=== PATIENT | female | born 1995 | race Caucasian/White ===

== ENCOUNTER 2016-07-30 12:03 | Emergency (ER) | payer OTHER ==
[~2016-07-30] VITALS: Ht 157.5 cm; Wt 59.1 kg
[~2016-07-30 12:03] MED LIST: BACTRIM DS 8001 TAB PO; FLOMAX 0.40.4 MG/CAP PO; PERCOCET 325 MG1 TA2 PO; TRI-SPRINTEC 281 TAB; ULTRAM 50MG TAB50 MG PO
[2016-07-30 12:05] VITALS: BP 123/67; TEMP 97.8
[2016-07-30 12:33] LABS: BASO % 0.2 % (0.0-2.0); EOS % 0.2 % (0-4.0); GRAN # 10.8 (1.4-6.5); GRAN % 83.2 % (42.2-75.2); HEMATOCRIT 40.9 % (35.0-45.0); HEMOGLOBIN 13.9 g/dl (12.0-15.0); LYMPH # 1.4 (1.2-3.4); LYMPH % 10.7 % (20.0-51.0); MEAN CELL VOLUME 81 fl (80.0-95.0); MEAN CORPUSCULAR HEMOGLOBIN 28 pg (26.0-32.0); MEAN CORPUSCULAR HGB CONC 34 g/dl (33.0-37.0); MEAN PLATELET VOLUME 9.5 fl (7.4-10.4); MONO # 0.7 (0.1-0.6); MONO % 5.2 % (1.7-9.3); PLATELET COUNT 357 K/mm3 (130-400); RED BLOOD COUNT 5.03 M/mm3 (4.10-5.30); REDCELL DISTRIBUTION WIDTH-CV 12.4 % (11.5-14.5)
[2016-07-30 12:41] LABS: ADJUSTED CALCIUM 9.6 mg/dL (8.4-10.2); ALBUMIN 4.6 gm/dL (3.5-5.0); BILIRUBIN,TOTAL 0.8 mg/dL (0.0-1.0); CALCIUM 10.1 mg/dL (8.4-10.2); CREATININE, serum 1.01 mg/dL (0.52-1.25); POTASSIUM 3.5 mmol/L (3.4-5.0); TOTAL PROTEIN 8.3 gm/dL (6.4-8.2)
[2016-07-30 13:28] LABS: PH 6 (5-8); URINE APPEARANCE Cloudy; URINE BACTERIA Rare /hpf; URINE BILIRUBIN Negative (NEGATIVE); URINE BLOOD 3+ (NEGATIVE); URINE COLOR Yellow; URINE GLUCOSE Negative (NEGATIVE); URINE KETONE Trace (NEGATIVE); URINE RBC >50 /hpf; URINE UROBILINOGEN Negative (NEGATIVE)
[2016-07-30] MEDS ORDERED: PERCOCET 325 MG1 TA2 PO (14:54)
[2016-07-30 15:48] VITALS: PULSE 73
== END 2016-07-30 15:49 | disposition home or self-care (01) ==
LOC: COL.ER 12:03
PROVIDERS: Nurse Practitioner
DX: N13.2 Hydronephrosis with renal and ureteral calculous obstruction (principal); Z87.442 Personal history of urinary calculi; R11.2 Nausea with vomiting, unspecified
CPT/HCPCS: J1885; J2405; J3010; J7030; Q9967

== ENCOUNTER 2016-12-21 12:56 | Day surgery (SDC) | payer OTHER ==
[~2016-12-21] VITALS: Ht 157.5 cm; Wt 65.6 kg
[2016-12-21] MEDS ORDERED: RELAFEN 50500 MG/TAB PO (13:42)
[2016-12-21] MEDS ORDERED: ZOFRAN8 MG PO (13:43)
[2016-12-21] MEDS ORDERED: NORCO 325 MG-51 TAB PO (13:43)
[2016-12-21 13:59] VITALS: BP 115/69; PULSE 76; TEMP 97.9
[2016-12-21 14:31] LABS: BASO % 0.3 % (0.0-2.0); EOS % 0.2 % (0-4.0); GRAN # 9.3 (1.4-6.5); GRAN % 75.1 % (42.2-75.2); HEMATOCRIT 37.1 % (35.0-45.0); HEMOGLOBIN 12.6 g/dl (12.0-15.0); LYMPH % 15.9 % (20.0-51.0); MEAN CELL VOLUME 81 fl (80.0-95.0); MEAN CORPUSCULAR HEMOGLOBIN 28 pg (26.0-32.0); MEAN CORPUSCULAR HGB CONC 34 g/dl (33.0-37.0); MEAN PLATELET VOLUME 9.6 fl (7.4-10.4); MONO % 8.1 % (1.7-9.3); PLATELET COUNT 326 K/mm3 (130-400); RED BLOOD COUNT 4.59 M/mm3 (4.10-5.30); REDCELL DISTRIBUTION WIDTH-CV 12.4 % (11.5-14.5); WHITE BLOOD COUNT 12.4 K/mm3 (4.8-10.8)
[2016-12-21 20:10] VITALS: BP 105/62; PULSE 71; TEMP 97.4
[2016-12-21 20:22] VITALS: TEMP 97.4
[2016-12-21 20:25] VITALS: BP 105/61; PULSE 65
[2016-12-21 20:40] VITALS: BP 112/56; PULSE 72
== END 2016-12-21 21:45 | disposition home or self-care (01) ==
LOC: SDCO 12:56
PROVIDERS: Urology
DX: N20.1 Calculus of ureter (principal)
CPT/HCPCS: C1769; J0690; J1100; J1885; J1940; J2405; J2704; J2765; J3010; Q9967

== ENCOUNTER 2017-04-08 07:02 | Emergency (ER) | payer OTHER ==
[~2017-04-08] VITALS: Ht 157.5 cm; Wt 61.4 kg
[~2017-04-08 07:02] MED LIST changes: +NORCO 325 MG-51 TAB PO; +RELAFEN 50500 MG/TAB PO; +ZOFRAN8 MG PO
[2017-04-08 07:06] VITALS: TEMP 98.2
[2017-04-08] MEDS ORDERED: UROCIT-K 5540 MG/TAB PO (07:11)
[2017-04-08 07:45] LABS: BASO % 0.4 % (0.0-2.0); EOS # 0.1 (0.0-0.7); EOS % 1.7 % (0-4.0); GRAN # 3.7 (1.4-6.5); GRAN % 51.4 % (42.2-75.2); HEMATOCRIT 41.3 % (37.0-47.0); HEMOGLOBIN 13.8 g/dl (12.5-16.0); LYMPH # 2.7 (1.2-3.4); LYMPH % 37.3 % (20.0-51.0); MEAN CELL VOLUME 82 fl (80.0-100.0); MEAN CORPUSCULAR HEMOGLOBIN 27 pg (27.0-31.0); MEAN CORPUSCULAR HGB CONC 33 g/dl (33.0-37.0); MEAN PLATELET VOLUME 9.5 fl (7.4-10.4); MONO # 0.6 (0.1-0.6); MONO % 8.9 % (1.7-9.3); PLATELET COUNT 383 K/mm3 (130-400); RED BLOOD COUNT 5.05 M/mm3 (4.10-5.30); REDCELL DISTRIBUTION WIDTH-CV 12.7 % (11.5-14.5)
[2017-04-08 07:57] LABS: ALBUMIN 4.9 gm/dL (3.5-5.0); BILIRUBIN,TOTAL 0.5 mg/dL (0.0-1.0); CALCIUM 9.6 mg/dL (8.4-10.2); CREATININE, serum 0.77 mg/dL (0.52-1.25); POTASSIUM 3.7 mmol/L (3.4-5.0); TOTAL PROTEIN 8.4 gm/dL (6.4-8.2)
[2017-04-08 08:11] LABS: COLLECTION METHOD CATHETER
[2017-04-08 08:23] LABS: MUCOUS Present /lpf; PH 6 (5-8); SQUAMOUS EPITHELIAL None Seen /hpf; URINE APPEARANCE Cloudy; URINE BACTERIA Rare /hpf; URINE BILIRUBIN Negative (NEGATIVE); URINE BLOOD 3+ (NEGATIVE); URINE COLOR Yellow; URINE GLUCOSE Negative (NEGATIVE); URINE KETONE Negative (NEGATIVE); URINE LEUKOCYTE ESTERASE Trace (NEGATIVE); URINE NITRATE Positive (NEGATIVE); URINE PROTEIN(semi-quant) 1+ (NEGATIVE); URINE RBC >50 /hpf; URINE UROBILINOGEN Negative (NEGATIVE)
[2017-04-08] MEDS ORDERED: NORCO 325 MG-51 TAB PO (09:33)
[2017-04-08] MEDS ORDERED: CEFTIN500 MG PO (09:33)
[2017-04-08 09:45] VITALS: BP 95/60; PULSE 72
== END 2017-04-08 09:46 | disposition home or self-care (01) ==
LOC: COL.ER 07:02
PROVIDERS: Nurse Practitioner
DX: R10.9 Unspecified abdominal pain (principal); Z87.442 Personal history of urinary calculi
CPT/HCPCS: J1885; J2270; J2405; J7030

== ENCOUNTER → 2018-08-01 | Outpatient (CLI) | payer OTHER ==
[~2018-08-01] MED LIST changes: +CEFTIN500 MG PO; +UROCIT-K 5540 MG/TAB PO
== END ==
LOC: COL.RAD 07-25 14:00
DX: N30.20 Other chronic cystitis without hematuria (principal)
CPT/HCPCS: Q9967

== ENCOUNTER 2020-12-24 05:55 | Emergency (ER) | payer OTHER ==
[~2020-12-24] VITALS: Ht 157.5 cm; Wt 81.8 kg
[2020-12-24 06:00] VITALS: TEMP 97.8
[2020-12-24 06:21] LABS: COLLECTION METHOD CLEAN CATCH
[2020-12-24 06:24] LABS: BASO % 0.2 % (0.0-2.0); EOS % 0.1 % (0-4.0); GRAN # 8.5 (1.4-6.5); GRAN % 62.1 % (42.2-75.2); HEMATOCRIT 39.5 % (37.0-47.0); HEMOGLOBIN 12.7 g/dl (12.5-16.0); LYMPH % 29.6 % (20.0-51.0); MEAN CELL VOLUME 81 fl (80.0-100.0); MEAN CORPUSCULAR HEMOGLOBIN 26 pg (27.0-31.0); MEAN CORPUSCULAR HGB CONC 32 g/dl (33.0-37.0); MEAN PLATELET VOLUME 9.4 fl (7.4-10.4); MONO % 7.6 % (1.7-9.3); PLATELET COUNT 400 K/mm3 (130-400); RED BLOOD COUNT 4.87 M/mm3 (4.10-5.30); REDCELL DISTRIBUTION WIDTH-CV 13.8 % (11.5-14.5)
[2020-12-24 06:31] LABS: MUCOUS Present /lpf; PH 6 (5-8); URINE APPEARANCE Cloudy; URINE BACTERIA None Seen /hpf; URINE BILIRUBIN Negative (NEGATIVE); URINE BLOOD 2+ (NEGATIVE); URINE COLOR Red; URINE GLUCOSE Negative (NEGATIVE); URINE KETONE Negative (NEGATIVE); URINE LEUKOCYTE ESTERASE 2+ (NEGATIVE); URINE NITRATE Negative (NEGATIVE); URINE PROTEIN(semi-quant) 2+ (NEGATIVE); URINE RBC >50 /hpf; URINE UROBILINOGEN Negative (NEGATIVE)
[2020-12-24 06:39] LABS: ALBUMIN 4.5 gm/dL (3.5-5.0); BILIRUBIN,TOTAL 0.4 mg/dL (0.0-1.0); CREATININE, serum 0.91 (0.52-1.25); POTASSIUM 3.7 mmol/L (3.4-5.0); TOTAL PROTEIN 8.3 gm/dL (6.4-8.2)
[2020-12-24 07:58] VITALS: BP 125/56; PULSE 64
[2020-12-26] MEDS ORDERED: BACTRIM DS 8001 TAB PO (02:01)
[2020-12-26] MEDS ORDERED: CIPRO 500MG TA500 MG PO (11:47)
== END 2020-12-24 08:06 | disposition home or self-care (01) ==
LOC: COL.ER 05:55
PROVIDERS: Personal Emergency Response Attendant
DX: N20.2 Calculus of kidney with calculus of ureter (principal); Z96.0 Presence of urogenital implants; Z98.890 Other specified postprocedural states; Z32.02 Encounter for pregnancy test, result negative
CPT/HCPCS: J0696; J1885; J2270; J2405; J7030

== ENCOUNTER 2021-01-20 22:11 | Observation (INO) | payer OTHER ==
[~2021-01-20] VITALS: Ht 157.5 cm; Wt 82.0 kg
[~2021-01-20 22:11] MED LIST changes: +CIPRO 500MG TA500 MG PO
[2021-01-20 22:52] LABS: COLLECTION METHOD CLEAN CATCH
[2021-01-20 22:55] LABS: BASO # 0.1 K/mm3 (0.0-0.2); BASO % 0.4 % (0.0-2.0); EOS # 0.1 K/mm3 (0.0-0.7); EOS % 0.3 % (0-4.0); GRAN # 11.3 K/mm3 (1.4-6.5); GRAN % 74.7 % (42.2-75.2); HEMATOCRIT 39.6 % (37.0-47.0); HEMOGLOBIN 13.2 g/dl (12.5-16.0); LYMPH # 2.6 K/mm3 (1.2-3.4); LYMPH % 17.2 % (20.0-51.0); MEAN CELL VOLUME 79 fl (80.0-100.0); MEAN CORPUSCULAR HEMOGLOBIN 26 pg (27.0-31.0); MEAN CORPUSCULAR HGB CONC 33 g/dl (33.0-37.0); MEAN PLATELET VOLUME 9.8 fl (7.4-10.4); MONO # 1.1 K/mm3 (0.1-0.6); PLATELET COUNT 438 K/mm3 (130-400); REDCELL DISTRIBUTION WIDTH-CV 13.4 % (11.5-14.5)
[2021-01-20 23:08] LABS: MUCOUS Present /lpf; PH 6 (5-8); SQUAMOUS EPITHELIAL 0-2 /hpf; URINE APPEARANCE Hazy; URINE BACTERIA None Seen /hpf; URINE BILIRUBIN Negative (NEGATIVE); URINE BLOOD 3+ (NEGATIVE); URINE COLOR Yellow; URINE GLUCOSE Negative (NEGATIVE); URINE KETONE Negative (NEGATIVE); URINE LEUKOCYTE ESTERASE Negative (NEGATIVE); URINE NITRATE Negative (NEGATIVE); URINE PROTEIN(semi-quant) 1+ (NEGATIVE); URINE RBC >50 /hpf; URINE UROBILINOGEN Negative (NEGATIVE)
[2021-01-20 23:09] LABS: ALBUMIN 4.3 gm/dL (3.5-5.0); BILIRUBIN,TOTAL 0.3 mg/dL (0.2-1.2); CALCIUM 9.6 mg/dL (8.4-10.2); POTASSIUM 3.5 mmol/L (3.5-4.5); TOTAL PROTEIN 8.5 gm/dL (6.2-8.1)
[2021-01-21] VITALS (9 sets, daily range): BP systolic 90–120; BP diastolic 54–84; PULSE 74–105; TEMP 97.3–98.4
[2021-01-21] MEDS ORDERED: LEXAPRO20 MG PO (01:13)
--- NOTE | 2021-01-21 05:06 | NUR ---
Pt. arrived to the floor via wheelchair. Pt. is able to ambulate to the bed independently. Pt. is A&OX3, assessment complete, IV to rt. ac patent. IV fluids infusing per orders. Pt. denies pain or other needs, call light within reach.
[2021-01-21 06:25] LABS: BASO % 0.3 % (0.0-2.0); EOS % 0.1 % (0-4.0); HEMOGLOBIN 12.8 g/dl (12.5-16.0); LYMPH # 1.8 K/mm3 (1.2-3.4); LYMPH % 13.8 % (20.0-51.0); MEAN CELL VOLUME 80 fl (80.0-100.0); MEAN CORPUSCULAR HEMOGLOBIN 26 pg (27.0-31.0); MEAN CORPUSCULAR HGB CONC 33 g/dl (33.0-37.0); MEAN PLATELET VOLUME 9.5 fl (7.4-10.4); MONO # 1.1 K/mm3 (0.1-0.6); MONO % 8.3 % (1.7-9.3); PLATELET COUNT 415 K/mm3 (130-400); RED BLOOD COUNT 4.87 M/mm3 (4.10-5.30); REDCELL DISTRIBUTION WIDTH-CV 13.6 % (11.5-14.5)
[2021-01-21 06:56] LABS: CALCIUM 9.3 mg/dL (8.4-10.2); CREATININE, serum 0.97 mg/dL (0.57-1.11); POTASSIUM 3.9 mmol/L (3.5-4.5)
--- NOTE | 2021-01-21 09:39 | NUR ---
Patient alert and oriented, answers questions appropriately. See assessment. No c/o urinary burning, frequency or hesitancy. Voiding adequate amounts. No c/o at this time.
--- NOTE | 2021-01-21 10:20 | NUR ---
SW met with the patient to discuss discharge plan. The patient lives in [place] with her boyfriend, Eloy. She reports independence with ADLs and does not have any DME. The patient's PCP is Dr. Rosmery Graham and she receives her medications from [facility]. She reports no difficulties obtaining her meds. The patient does not have a DPOA-HC and she was not interested in completing one at this time. The patient states that she is not and does not have any children. Her parents are her next of kin: [place] (ph#[phone]) and [place]. The patient plans to return home with her boyfriend upon discharge. No additional needs at this time. *Discharge plan: home with boyfriend*
--- NOTE | 2021-01-21 13:13 | NUR ---
First visit from the waste minimization technician. No needs right now.
--- NOTE | 2021-01-21 19:30 | NUR ---
PATIENT TOLERATED SUPPER TRAY/FOOD. DENIES NAUSEA, REPORTS HAD VOIDED WITH NO REPORTED PAIN/BURNING/URGENCY BUT DID REPORT BLOOD WITH URINE. PARENT AT BEDSIDE.
--- NOTE | 2021-01-21 19:33 | NUR ---
RECEIVED CHANGE OF SHIFT REPORT FROM DAY SHIFT NURSE.
--- NOTE | 2021-01-21 19:56 | NUR ---
Patient returned [id number] post op cysto. Assessment unchanged. Requests food and drink. No c/o at this time.
--- NOTE | 2021-01-21 20:50 | NUR ---
PATIENT DISMISSED PER WHEELCHAIR OFF UNIT TO BE TRANSPORTED HOME BY PARENT PER PRIVATE VEHICLE. DENIES ANY FURTHER NEEDS OR CONCERNS ON DISMISSAL. REQUESTED AND GIVEN TORADOL IV PER PATIENT REQUEST PRIOR TO IV SITE REMOVED.
== END 2021-01-21 20:50 | disposition home or self-care (01) ==
LOC: COL.ER 22:11 → SURG 01-21 01:17
PROVIDERS: Physician Assistant; Student in an Organized Health Care Education/Training Program; ADMIT Student in an Organized Health Care Education/Training Program
DX: N13.2 Hydronephrosis with renal and ureteral calculous obstruction (principal); N12 Tubulo-interstitial nephritis, not specified as acute or chronic; N39.0 Urinary tract infection, site not specified; F32.9 Major depressive disorder, single episode, unspecified; F41.9 Anxiety disorder, unspecified; Z79.899 Other long term (current) drug therapy
CPT/HCPCS: 99232-AI; C1769; C2617; G0008; G0378; J0690; J0696; J1100; J1885; J2270; J2405; J2704; J3010; J7030; Q9967

== ENCOUNTER → 2021-09-02 | Outpatient (CLI) | payer OTHER ==
[~2021-09-02] MED LIST changes: +LEXAPRO20 MG PO
== END ==
LOC: COL.RAD 13:53
DX: N20.1 Calculus of ureter (principal); K44.9 Diaphragmatic hernia without obstruction or gangrene

== ENCOUNTER 2023-07-19 01:30 | Emergency (ER) | payer BC ==
[~2023-07-19] VITALS: Ht 157.5 cm; Wt 88.6 kg
[~2023-07-19 01:30] MED LIST changes: +BUSPAR10 MG PO; +CEFTIN 250250 MG/TAB PO; +PRIL40 PO; +ZYRTEC 10MG10 MG PO
[2023-07-19 01:41] VITALS: TEMP 98
[2023-07-19 01:47] LABS: COLLECTION METHOD CLEAN CATCH
[2023-07-19 01:52] LABS: BASO % 0.2 % (0.0-2.0); EOS # 0.2 K/mm3 (0.0-0.7); EOS % 1.3 % (0.0-4.0); GRAN # 6.7 K/mm3 (1.4-6.5); GRAN % 58.8 % (42.2-75.2); HEMATOCRIT 41.9 % (37.0-47.0); LYMPH # 3.7 K/mm3 (1.2-3.4); LYMPH % 32.5 % (20.0-51.0); MEAN CELL VOLUME 81 fl (80.0-100.0); MEAN CORPUSCULAR HEMOGLOBIN 27 pg (27-31); MEAN CORPUSCULAR HGB CONC 33 g/dl (33.0-37.0); MEAN PLATELET VOLUME 9.4 fl (7.4-10.4); MONO # 0.8 K/mm3 (0.1-0.6); PLATELET COUNT 423 K/mm3 (130-400); RED BLOOD COUNT 5.19 M/mm3 (4.10-5.30); REDCELL DISTRIBUTION WIDTH-CV 12.7 % (11.5-14.5)
[2023-07-19 02:01] LABS: URINE APPEARANCE CLEAR (CLEAR/HAZY); URINE BLOOD TRACE (NEGATIVE); URINE COLOR YELLOW (YELLOW); URINE GLUCOSE NEGATIVE (NEGATIVE); URINE KETONE NEGATIVE (NEGATIVE); URINE NITRATE NEGATIVE (NEGATIVE); URINE PROTEIN(semi-quant) NEGATIVE (NEGATIVE); URINE UROBILINOGEN 0.2 E.U/dL (0.2-1.0)
[2023-07-19 02:10] LABS: ALBUMIN 3.9 g/dL (3.5-5.0); BILIRUBIN,TOTAL 0.3 mg/dL (0.2-1.2); C-REACTIVE PROTEIN 2.35 mg/dL (0.00-0.50); CALCIUM 9.2 mg/dL (8.4-10.2); CREATININE, serum 0.82 mg/dL (0.57-1.11); POTASSIUM 3.5 mEq/L (3.5-4.5)
[2023-07-19] MEDS ORDERED: Ketorolac 30 MG/ML VIAL IV ONE (02:15)
[2023-07-19] MEDS ORDERED: Ondansetron 4 MG/2 ML VIAL IV ONE (02:15)
[2023-07-19] MEDS ORDERED: LR 1,000 ML IV ONE (02:15)
[2023-07-19] MEDS ORDERED: Iohexol 300 - 100 ML VIAL IV ONE (02:47)
[2023-07-19] MEDS ORDERED: NS 50 ML IV SCH (02:47)
[2023-07-19 04:00] VITALS: BP 107/75; PULSE 75
== END 2023-07-19 04:00 | disposition other institution (70) ==
LOC: COL.ER 01:30
PROVIDERS: Nurse Practitioner
DX: R10.11 Right upper quadrant pain (principal); Z87.442 Personal history of urinary calculi
CPT/HCPCS: J1885; J2405; J7120; Q9967